=== PATIENT | male | born 1980 | race Asian ===

== ENCOUNTER 2022-05-26 21:28 | Emergency (ER) | payer BC ==
[~2022-05-26] VITALS: Ht 180.3 cm; Wt 96.6 kg
[2022-05-26] MEDS ORDERED: KETOROLAC TROMETHAMINE 60 MG INJ IM ONE (22:15)
[2022-05-26 22:45] LABS: HEMATOCRIT 45.1 % (36.7-47.1); MEAN CORPUSCULAR HEMOGLOBIN 30.7 uug (23.8-33.4); MEAN CORPUSCULAR VOLUME 87.8 fL (73.0-96.2); PLATELET COUNT (AUTO) 245 K/uL (152-348)
[2022-05-26 22:49] LABS: CARBON DIOXIDE 25 mmol/L (21-32); CHLORIDE 103 mmol/L (98-107); CREATININE 1.2 mg/dL (0.6-1.3); GLUCOSE 120 mg/dL (74-106); POTASSIUM 3.6 mmol/L (3.5-5.1); UREA NITROGEN, BLOOD 17 mg/dL (7-18)
[2022-05-26 22:57] LABS: ALANINE AMINOTRANSFERASE 75 U/L (16-63); ALKALINE PHOSPHATASE 37 U/L (50-136); ASPARTATE AMINOTRANSFERASE 21 U/L (15-37); BILIRUBIN,DIRECT 0.1 mg/dL (0.0-0.2); BILIRUBIN,TOTAL 0.6 mg/dL (0.2-1.0); TOTAL PROTEIN, SERUM 7.3 g/dL (6.4-8.2)
[2022-05-27] MEDS ORDERED: KETOROLAC TROMETHAMINE 60 MG INJ IM ONE (00:15)
[2022-05-27] MEDS ORDERED: IBUP800T54 PO (00:50)
[2022-05-27 01:17] VITALS: BP 122/83
--- NOTE | 2022-05-27 01:17 | NUR ---
Patient discharged to home in stable condition. Written and verbal after care instructions given. Patient verbalizes understanding of instructions. Stressed follow up or return to ER for worsening s/s.
== END 2022-05-27 01:18 | disposition home or self-care (01) ==
LOC: ER 21:34
DX: R07.9 Chest pain, unspecified (principal)
CPT/HCPCS: 36415; 71045; 84484; 85025; 93005; A4663; J1885